=== PATIENT | male | born 1950 | race Caucasian/White ===

== ENCOUNTER → 2017-04-29 07:46 | Outpatient (CLI) | payer BC, SELFPAY ==
[2017-04-29 08:23] LABS: Absolute Lymphocyte Count 1.41 X10^3/ul (0.83-4.51); Absolute Neutrophil Count 2.7 X10^3/uL (2.0-7.7); Basophil# 0.02 X10^3/uL; Basophil% 0.4 % (0-1); Eosinophil# 0.15 X10^3/uL; Eosinophils% 3.1 % (0-5); Hematocrit 43.6 % (40-54); Hemoglobin 14.9 g/dl (13.0-16.5); Lymphocyte # 1.41 X10^3/ul (4.0); Mean Corp Hgb Conc 34.2 g/gl (32-36); Mean Corpuscular Hgb 30.9 pg (27.0-32.0); Mean Corpuscular Volume 90.5 fL (80-94); Mean Platelet Vol. 11.4 fl (6.2-12.0); Monocyte# 0.51 X10^3/uL; Monocyte% 10.5 % (0-10); Neutrophil # 2.74 X10^3/uL (2.7-7.7); Neutrophil % 56.4 % (47-70); Platelet Count 137 K/mm3 (150-450); RBC Distribution Width CV 12.7 % (11.6-14.6); RBC Distribution Width SD 41.4 fl (35.1-43.9); Red Blood Count 4.82 M/mm3 (4.6-6.2); White Blood Count 4.9 K/mm3 (4.4-11.0)
[2017-04-29 08:27] LABS: POSITIVE COUNT NO; POSITIVE DIFFERENTIAL NO; POSITIVE MORPHOLOGY NO
[2017-04-29 09:01] LABS: Anion Gap 10 (5-15); BUN 21 mg/dL (7-18); BUN/Creat Ratio 12.7 RATIO (10-20); Calcium,Total 9.4 mg/dL (8.5-10.1); Chloride 108 mmol/L (98-107); Cholesterol 119 mg/dL (200); Creatinine, Serum 1.66 mg/dL (0.70-1.30); EST Glomerular Filtration Rate 44 mL/min (>60); Est Glom Filt Rate - Afr Amer 54 mL/min (>60); Glucose 97 mg/dL (74-106); High Density Lipoprotein 31 mg/dL; Sodium Level 143 mmol/L (136-145); Triglycerides 177 mg/dL; Uric Acid 4.5 mg/dL (3.5-7.2); Very Low Density Lipoprotein 35 mg/dL (5-40)
== END ==
DX: I12.9 Hypertensive chronic kidney disease with stage 1 through stage 4 chronic kidney disease, or unspecified chronic kidney disease (principal); N18.3 Chronic kidney disease, stage 3 (moderate); E78.2 Mixed hyperlipidemia; M10.9 Gout, unspecified
CPT/HCPCS: 36415; 80048; 80061; 84550; 85025

== ENCOUNTER → 2017-10-27 20:27 | Outpatient (CLI) | payer BC, SELFPAY | DX: G47.33 Obstructive sleep apnea (adult) (pediatric) (principal) | CPT/HCPCS: 95811 ==

== ENCOUNTER → 2018-10-11 15:22 | Outpatient (CLI) | payer BC, SELFPAY ==
--- NOTE | 2018-10-11 15:24 | RAD_ITS ---
STUDY: X-RAY - LUMBAR SPINE REASON FOR EXAM: Male, 68 years old. Low back pain for years, increased x 3 months with bilateral leg pain. TECHNIQUE: 3 view(s) of the lumbar spine were obtained. COMPARISON: None FINDINGS: Normal lumbar lordosis. There is a grossly levoscoliosis of the upper lumbar spine. There is stable grade 1 L3-4 spondylolisthesis. There is stable multilevel endplate spondylosis of the visualized thoracolumbar vertebrae. There is multi-level degenerative disc disease with multi-level disc space narrowing. Bilateral L3 pars defects again noted. No other new demonstrated osseous destructive lesion or acute fracture. There are stable multilevel degenerative changes of the lumbar facet joints. There is stable atherosclerotic calcification of the abdominal aorta without a demonstrated aneurysm. RAD/Lumbar Spine 2 or 3 Views IMPRESSION: Stable multilevel degenerative changes of the spine, as detailed above. Bilateral L3 pars defects and a grade 1 L3-4 spondylolisthesis also unchanged. Electronically Signed: Edwar Lerma MD at 16:33 EDT , Service support ,
== END ==
PROVIDERS: Referring Provider Anesthesiology Pain Medicine; Visit Provider Anesthesiology Pain Medicine
DX: M54.9 Dorsalgia, unspecified (principal)
CPT/HCPCS: 72100

== ENCOUNTER → 2018-10-17 06:34 | Outpatient (CLI) | payer BC, SELFPAY ==
--- NOTE | 2018-10-17 06:44 | MRI_ITS ---
STUDY: MRI LUMBAR SPINE WITHOUT CONTRAST REASON FOR EXAM: Male, 68 years old. Low back and bilateral leg pain. TECHNIQUE: Standardized fat and water weighted pulse sequences were obtained in the sagittal and axial planes. COMPARISON: CT abdomen and pelvis 07/22/2016. MRI lumbar spine 12/18/2013. FINDINGS: Alignment similar to the 07/22/2016 CT with moderate left scoliosis centered at L1-2, 2 mm degenerative retrolisthesis of L1 on L2, 6 mm degenerative anterolisthesis of L3 on L4, and 2 mm degenerative retrolisthesis of L5 on S1. Bilateral L3 spondylolysis again demonstrated. No acute fracture or acute signal changes in the vertebrae. Disc height loss and degenerative endplate signal changes and irregularity at all levels, with the exception of L4-5, are similar to previous. The conus terminates at the level of the mid L1 vertebral body with normal contour and signal, and the thecal sac terminates at the mid S3 level. No acute findings in the visualized paraspinal soft tissues. Incidental right renal cyst. At L1-2, mild degenerative retrolisthesis, moderate diffuse disc bulge (which is larger compared to the previous MRI), and mild bilateral facet degeneration causes moderate narrowing of the right subarticular zone, with disc of abutting but not compressing the traversing right L2 nerve root; this narrowing is new compared to the previous MRI. Only mild narrowing of the foramina and left subarticular zone. At L2-3, mild bilateral facet degeneration causes no significant narrowing of the foramina or spinal canal. At L3-4, marked bilateral facet degeneration, with bilateral L3 spondylolysis and 6 mm anterolisthesis and unroofing of the disc, causes only mild narrowing of the spinal canal, and moderate narrowing of the bilateral foramina, with mild flattening of the bilateral exiting L3 nerve roots. This level is similar to prior. At L4-5, marked bilateral facet degeneration with degenerative buckling of the ligamentum flavum has significantly worsened compared to the previous MRI. This causes high-grade narrowing of the bilateral subarticular zones, likely compressing the traversing bilateral L5 nerve roots. There is moderate narrowing of the spinal canal with moderate central crowding of the remainder of the cauda equina, all new compared to the previous MRI. 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 At L5-S1, mild degenerative retrolisthesis combines with disc osteophyte complex and moderate bilateral facet degeneration to cause moderate narrowing of the left subarticular zone, with posterior displacement and possible compression of the traversing left S1 nerve root. Osteophytes cause moderate narrowing of the left foramen, with flattening of the exiting left L5 nerve root in the foramen. Only mild narrowing of the right foramen and right subarticular zone. This level is similar to the previous MRI. MRI/Spine Lumbar (Routine) IMPRESSION: Interval marked worsening of bilateral facet degeneration at L4-5. Resulting degenerative buckling of the ligamentum flavum causes high-grade narrowing of the bilateral subarticular zones, likely compressing the traversing bilateral L5 nerve roots, new compared to the previous MRI. 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 Slight interval worsening of disc bulge at L1-2, with resulting moderate narrowing of the right subarticular zone, with disc of abutting but not compressing the traversing right L2 nerve root; this is also new compared to the previous MRI. Otherwise similar to previous, including moderate left scoliosis, bilateral L3 spondylolysis with grade 1 anterolisthesis of L3 on L4, moderate narrowing of the bilateral L3-4 foramina, and moderate narrowing of the left subarticular zone and left foramen at L5-S1. Electronically Signed: Dominik Neves, at 8:22 EDT Tel , Service support ,
== END ==
PROVIDERS: Referring Provider Anesthesiology Pain Medicine; Visit Provider Anesthesiology Pain Medicine
DX: M54.9 Dorsalgia, unspecified (principal); M79.606 Pain in leg, unspecified
CPT/HCPCS: 72148

== ENCOUNTER 2019-02-19 09:30 | Outpatient (RCR) | payer BC, SELFPAY ==
--- NOTE | 2018-12-03 14:31 | HP.PTEVAL ---
Patient's Visit Information ROMARIO SANCHEZ is a 68 year old M referred to Physical Therapy by LEONID LILLY with a diagnosis of L3/L4/L5/S1 fusion. Date of Evaluation: 12/03/18 Physical Therapist: Jesus Nelson DPT - Visit Plan Frequency: 2-3x /Week Duration: 4-6 Weeks Plan: Start with core stability exercises in neutral spine, BLE stretching and light dural stretching. Progress as tolerated. Start PT 12/07/18. - Subjective Findings: Pt. is here today for is initial evaluation S/P L3/L4/L5/S1 fusion, bilateral pedicle screw instrumentation (posterior/lateral fusion). DOS: Nov 12, 2018. Pt. denies N/T in either LE. Pt. is no longer having any leg pain, but does have R sided lumbar spine pain. Pt arrives today walking with SPC and use of lumbar brace. Pt. reports being HEP Compliant with exercises from physician. Pt. reports he is already doing much better than prior to surgery. 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 Pt. reports being compliant with no bending/twisting/lifting precatuions. Pt. is hopeful to increase his core strength and get back to recreational walking and all kahn activities without limitations. - Pain lumbar spine Pain Intensity (Out of 10): 4 Pain Intensity Range: 2, 6 - Objective POSTURE: Pt. has slight anterior pelvic tilt. Pt. has rounded shoulders. Pt. is able to improve with VC/TCing. PALPATION: Pt. has well healing incision, lower portion of scar has scab attached, upper to well healed. No signs of infection, no rednes. NEURO: normal DTR of BLEs, normal senstation of BLEs. ROM: Did not test ROM of lumbar spine. Pt. has tight HS bilaterally and tight hip flexors bilaterally. MMT: PT. had 4+/5 BLE strength throughout, except hip flexion 4/5 mild increase NW and hip abd 4/5 NE. GAIT: Pt. has decent gait pattern with SPC. PT. reports no increase in symptoms. Pt. has normal wt. shift between LEs, but has slight antalgic during R stance phase. Stairs wit BHR with step to pattern. No increase in symptoms. - Goals Goal 1:: Pt. to be I with Goal Time Frame: 4-6 Weeks Goal 2:: Pt. to ambulate unlimited distances without increase in symptoms. Goal Time Frame: 4-6 Weeks Goal 3:: Pt. to have good body awareness and demonstrate improved posture. Goal Time Frame: 4-6 Weeks Goal 4:: Pt. to negotiate 1 flight of steps with 1 HR with reciprocal pattern without increase in symptoms. Goal Time Frame: 4-6 Weeks Goal 5:: Pt. to sleep throughout the night without increase in symptoms. Goal Time Frame: 4-6 Weeks - Rehabilitation Potential Physical Therapy Diagnosis: Pt has signs and symptoms consistent with L3/L4/L5/S1 fusion. Pt. has subsequent hypombility, weakness, difficulty with walking and pain. Pt. would benefit from PT to increase core stability, LE stretching and reduce symptoms. Pt. to avoid Bending/twisting/lifting until otherwise noted. Rehabilitation Potential: Excellent - Anticipated Interventions Patient/Client Instruction: Educate patient on: Condition, Plan of Care, Risk Factors, Benefits of Fitness Program For the Purpose of:: To improve decision making, To facilitate caregiver knowledge, To improve self management, To prevent re-injury, To improve ability to perform tasks related to life management, To improve tolerance to ADL's Therapeutic Exercise to Include: Strength training, Power training, Endurance training, Postural training, Flexibilty training, Gait and locomotor training, Active ROM, Dynamic Lumbar Stabilization For the Purpose of:: To decrease pain, To decrease swelling/inflammation, To increase ROM, To improve nutrient delivery to tissue, To increase oxygenation perfusion, To improve muscle performance and motor function, To improve ability to perform ADL's, To increase tolerance to activity/condition/position, To improve ability of physical actions for home/community/work/leisure, To improve gait and locomotor functions, To improve health of tissue, To decrease soft tissue restriction, To increase flexibility/ROM Thank you for the opportunity to evaluate your patient. For Medicare and Medicare HMO plans, please review the plan of care and approve it. It will need to be FAXED BACK to us at [phone] for Medicare purposes. For Medicare only, by signing this I certify the plan of care. Please let me know if there are questions or concerns regarding this plan of care. Physician Signature: Date:
--- NOTE | 2018-12-20 11:39 | HP.PTREVAL ---
LEONID LILLY, It has been my pleasure to treat ROMARIO SANCHEZ over the last 7 visits for L3/L4/L5/S1 fusion. Please see the progress note below for an update on the physical therapy plan of care! Subjective: Pt. reports having 1/10 pain pre treatment. Pt. reports overall doing much better. He does get occassional R sided lumbar pain, 1-2/10 pain at times. Pt. is HEP compliant without issues. Objective/Function: Pt. toelrated all PT without adverse reaction. Pt. continues to progress as expected. Pt. reports no increase in symptoms with PT. Pt. is progressing with core stability exercises adn body mechanics with all movements. He is to follow up with physician tomorrow. Plan Plan: Start with core stability exercises in neutral spine, BLE stretching and light dural stretching. Progress as tolerated. Start PT 12/07/18. Goals Goal 1:: Pt. to be I with Goal Time Frame: 4-6 Weeks Goal Progress: Progressing Goal 2:: Pt. to ambulate unlimited distances without increase in symptoms. Goal Time Frame: 4-6 Weeks Goal Progress: Progressing Goal 3:: Pt. to have good body awareness and demonstrate improved posture. Goal Time Frame: 4-6 Weeks Goal Progress: Goal Met Goal 4:: Pt. to negotiate 1 flight of steps with 1 HR with reciprocal pattern without increase in symptoms. Goal Time Frame: 4-6 Weeks Goal Progress: Progressing Goal 5:: Pt. to sleep throughout the night without increase in symptoms. Goal Time Frame: 4-6 Weeks Goal Progress: Progressing Anticipated Interventions Patient/Client Instruction: Educate patient on: Condition, Plan of Care, Risk Factors, Benefits of Fitness Program For the Purpose of:: To improve decision making, To facilitate caregiver knowledge, To improve self management, To prevent re-injury, To improve ability to perform tasks related to life management, To improve tolerance to ADL's Therapeutic Exercise to Include: Strength training, Power training, Endurance training, Postural training, Flexibilty training, Gait and locomotor training, Active ROM, Dynamic Lumbar Stabilization For the Purpose of:: To decrease pain, To decrease swelling/inflammation, To increase ROM, To improve nutrient delivery to tissue, To increase oxygenation perfusion, To improve muscle performance and motor function, To improve ability to perform ADL's, To increase tolerance to activity/condition/position, To improve ability of physical actions for home/community/work/leisure, To improve gait and locomotor functions, To improve health of tissue, To decrease soft tissue restriction, To increase flexibility/ROM Please do not hesitate to contact me at [phone] by phone or if you have questions or concerns regarding this new plan of care! Sincerely, LITZY CuelloT
--- NOTE | 2019-01-28 09:03 | HP.PTREVAL_ITS ---
LEONID LILLY, It has been my pleasure to treat ROMARIO SANCHEZ over the last 18 visits for L3/L4/L5/S1 fusion. Please see the progress note below for an update on the physical therapy plan of care! Subjective: Pt. reports I was pretty sore yesterday, I don't really know what I did. He reports pain mostly on R side, SI region. Pt. reports having occ assional click in his R side of back, but is unsure if this is his hip. Pt. reports having generallized soreness this date on R side. No raidating symptoms in R leg. Objective/Function: Pt. tolerated all PT without adverse reaction. Pt. to continue to focus on controlled movements. Pt. is eager to get to higher lifting, back to previous levels. I have urged him to focus on control rather than speed or load. Pt. has min loss with flexion with slight increase in symptoms, has decent rotation without increase insymptoms. Pt. has to require increased VC/TCing for pelvic tilts with activites. Pt. tends to lose his proper pelvic postion with actiites. 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 Plan Plan: Cont. wtih POC. PT. to follow up with physician in a few weeks. FOcus on core stability and stretching as tolerated. Goals Goal 1:: Pt. to be I with Goal Time Frame: 4-6 Weeks Goal Progress: Goal Met Goal 2:: Pt. to ambulate unlimited distances without increase in symptoms. Goal Time Frame: 4-6 Weeks Goal Progress: Progressing Goal 3:: Pt. to have good body awareness and demonstrate improved posture. Goal Time Frame: 4-6 Weeks Goal Progress: Progressing Goal 4:: Pt. to negotiate 1 flight of steps with 1 HR with reciprocal pattern without increase in symptoms. Goal Time Frame: 4-6 Weeks Goal Progress: Goal Met Goal 5:: Pt. to sleep throughout the night without increase in symptoms. Goal Time Frame: 4-6 Weeks Goal Progress: Goal Met Anticipated Interventions Patient/Client Instruction: Educate patient on: Condition, Plan of Care, Risk Factors, Benefits of Fitness Program For the Purpose of:: To improve decision making, To facilitate caregiver knowledge, To improve self management, To prevent re-injury, To improve ability to perform tasks related to life management, To improve tolerance to ADL's Therapeutic Exercise to Include: Strength training, Power training, Endurance training, Postural training, Flexibilty training, Gait and locomotor training, Active ROM, Dynamic Lumbar Stabilization For the Purpose of:: To decrease pain, To decrease swelling/inflammation, To increase ROM, To improve nutrient delivery to tissue, To increase oxygenation perfusion, To improve muscle performance and motor function, To improve ability to perform ADL's, To increase tolerance to activity/condition/position, To improve ability of physical actions for home/community/work/leisure, To improve gait and locomotor functions, To improve health of tissue, To decrease soft tissue restriction, To increase flexibility/ROM Please do not hesitate to contact me at [phone] by phone or if you have questions or concerns regarding this new plan of care! Sincerely, LITZY CuelloT
--- NOTE | 2019-02-21 09:46 | HP.PTDCSUM ---
HP - PT D/C Summary It has been my pleasure to treat ROMARIO SANCHEZ under orders from LEONID LILLY, for the diagnosis of L3/L4/L5/S1 fusion for a total of 27 visit(s). Discharge Date: 02/19/19 Please see the following information for a summary of their discharge status. - Subjective Subjective: Pt. reports I am like 90% better overall.' pt. reports 0.5/10 pain in R side of lumbar spine its just a little sore. no N/T. He is planning to return to work next week. He has been HEP compliant without limitations. - Pain lumbar spine Pain Intensity (Out of 10): 1 - Overall Improvement % Improvement: 90 - Objective Objective/Function: Pt. has good ROM throughout lumbar spine, min loss with flexion 9due to HS tightnes), extension min/mod loss as expected, rotation min loss bilat. HS tightness noted, but improved. HE is improving with B hip ER motion, allowing for increased ability to don/doff shoes. Pt. has minimal pain that does not increase much with activity, .5/10 pain throughout PT this date. He is back to all ADls and daily activitie without limiations. Pt. has fair- core strength, and 5/5 strength throughout bilateral Les. pt. is walking unlimited disancse and stair negotiation without issues. - Goals Goal 1:: Pt. to be I with Goal Progress: Goal Met Goal 2:: Pt. to ambulate unlimited distances without increase in symptoms. Goal Progress: Goal Met Goal 3:: Pt. to have good body awareness and demonstrate improved posture. Goal Progress: Goal Met Goal 4:: Pt. to negotiate 1 flight of steps with 1 HR with reciprocal pattern without increase in symptoms. Goal Progress: Goal Met Goal 5:: Pt. to sleep throughout the night without increase in symptoms. Goal Progress: Goal Met - Plan Plan: Pt. to be DC from PT at this point in time. - D/C Information Discharge Comments: Pt. was treated for his lumbar spine fusion. He progressed with core stability and ROM as expected. Pt. did well. He is walking and completing all daily activities with minimal issues. He is to return back to work next week. Pt. will be DC from PT at this point in time. If there are questions or concerns regarding this patient's physical therapy, please feel free to call me at [phone]. Thank you for the referral of this patient. Sincerely, LITZY CuelloT
== END 2019-02-19 19:00 | disposition home or self-care (01) ==
LOC: PT 09:30
DX: M51.36 Other intervertebral disc degeneration, lumbar region (principal); G80.0 Spastic quadriplegic cerebral palsy; P91.60 Hypoxic ischemic encephalopathy [HIE], unspecified; Z74.09 Other reduced mobility
CPT/HCPCS: 97110; 97161

== ENCOUNTER 2022-01-28 09:00 | Outpatient (RCR) | payer MEDICARE, SELFPAY ==
--- NOTE | 2022-01-05 08:57 | HP.PTEVAL ---
Patient's Visit Information ROMARIO SANCHEZ is a 71 year old M referred to Physical Therapy by TUAN GRAF with a diagnosis of L shoulder pain, clavicle fracture. Date of Evaluation: 12/29/21 Physical Therapist: Jesus Nelson DPT - Visit Plan Frequency: 2x /Week Duration: 4 Weeks Plan: Start with calming symptoms and restoring PROM, progress to AROM and initiating isometrics. Once this has been restored start to add in progressive deltoid, scapular and periscaplular strengthening. If not improving a MRI may be warranted to rule out more sinister pathology. - Subjective Pt. is here today for his initial evaluation with diagnosis of L shoulder pain, L clavicle fx (distal 02/22). Pt. reports ~1 month ago falling while closing his pool for the winter. Pt. slipped and fell into the side of pool directly onto his L shoulder. Pt. reports having an initial xrays showing a fracture, but subsequent xrays was much better. He is still having pain in his lateral shoulder and down his arm with lifting, reaching and ADLs. He reports lack of using his L arm is the only way that it feels better. He is also have increase pain with sleeping. His pain wakes him up at night. He has difficulty with all ADLs and driving. He denies N/T in either UE. Pt. has not tried any exercises, but did use a sling for a bit but is now out of it. He is hopeful to reduce symptoms to get back to all recreational activities without limitations. - Pain L shoulder Pain Intensity (Out of 10): 5 Pain Intensity Range: 3, 9 - Objective POSTURE: pt. has equal shoulder heights. Pt. tends to keep L UE in guarded posture. Pt. and rounded + forward shoulder on L side. PALPATION: Pt. has tenderness at anterior aspect of L shoulder, subacromial space. Pt. has no pain at clavicle with firm pressure. NEURO: Pt. has normal sensation to light and sharp touch. Pt. has normal 2+ DTR of bilateral biceps and triceps. ROM: R shoulder: full motion without increase in symptoms, funtional ER C5, functional IR L1. L shoulder: AROM: flexion 140deg increase NW, abd 120deg increase NW, functional ER C1 aberrant motion increase in symptoms, functional IR PSIS on L side increase NW. PROM: flexion 160deg, abd 155deg, ER at 90deg 40deg increase NW, IR at 90deg 30deg increase NW. Pt. very guarded with motion of L shoulder. Better passive motion, but still painful. MMT: RUE: 5/5 throughout. LUE: wrist and elbow: 5/5 throughout; shoulder: flexion 4/5 increase NW, abd 4-/5 increase NW, ext 5/5 NE, Er 4+/5 increase NW, IR 4-/5 increase worse (most painful). - Special Tests L Shoulder External Rotation Lag Test - RC Tear: Negative L Shoulder Lift Off Test - Subscapular Tear: Positive L Shoulder Drop Sign - IS Test: Negative L Shoulder Empty Can - SS: Negative L Shoulder Belly Press - SupScap: Positive L Shoulder Neer - Impingement: Positive L Shoulder Merchant Naeem - Impingement: Positive L Shoulder Speeds Test - Labrum/Biceps: Positive - Balance/Special Test Scores Quick DASH Score: 63.6350 - Goals Goal 1:: LTG: Pt. to be I with HEP. Goal Time Frame: 4-6 Weeks Goal 2:: STG: Pt. to sleep throughout the night without increase in symptoms. Goal Time Frame: 2 Weeks Goal 3:: STG: Pt. to have full PROM of L shoulder without increase in symptoms. Goal Time Frame: 2-4 Weeks Goal 4:: LTG: Pt. to have full AROM of L shoulder without increase in symptoms. Goal Time Frame: 4-6 Weeks Goal 5:: LTG: Pt. to be able to complete all ADLs and household activities without increase in symptoms. Goal 6:: LTG: Pt. to have 5/5 strength through L shoulder without increase in symptoms. Goal Time Frame: 4-6 Weeks - Rehabilitation Potential Physical Therapy Diagnosis: Pt. has signs and symptoms consistent with L shoulder pain. After testing I am leaning towards RTC pathology. Due to nature of injure and limited mobility along with pain with muscle activation I would not be surprised by a RTC tear of some sort. He is limited in his overall mobility secondary to pain. He would still benefit from PT to work on restoring his ROM as he is fairly limited here as well. He would benefit from PT to initially restore his ROM along with reducing symptoms, progressing to light strengthening of his deltoid, scapular musculature, and RTC. Rehabilitation Potential: Good - Anticipated Interventions Patient/Client Instruction: Educate patient on: Condition, Plan of Care, Risk Factors, Benefits of Fitness Program For the Purpose of:: To improve decision making, To facilitate caregiver knowledge, To improve self management, To prevent re-injury, To improve ability to perform tasks related to life management Therapeutic Exercise to Include: Strength training, Power training, Coordination, Postural training, Flexibilty training, Passive ROM, Active ROM, Scapular Strength/Stabilization For the Purpose of:: To decrease pain, To decrease swelling/inflammation, To increase ROM, To improve nutrient delivery to tissue, To increase oxygenation perfusion, To improve health of tissue, To decrease soft tissue restriction, To increase flexibility/ROM Manual Therapy Techniques to Include: Mobilization, Passive ROM For the Purpose of:: To decrease pain, To decrease swelling/inflammation, To increase ROM, To improve nutrient delivery to tissue, To increase oxygenation perfusion, To improve muscle performance and motor function IF ES: Yes Cryotherapy (ice pack, ice massage): Yes Thermo therapy (hot pack): Yes Ultrasound (thermal/non thermal): Yes For the Purpose of:: To decrease pain, To decrease swelling/inflammation, To increase ROM, To improve nutrient delivery to tissue Thank you for the opportunity to evaluate your patient. For Medicare and Medicare HMO plans, please review the plan of care and approve it. It will need to be FAXED BACK to us at [phone] for Medicare purposes. For Medicare only, by signing this I certify the plan of care. Please let me know if there are questions or concerns regarding this plan of care. Physician Signature: Date:
== END 2022-01-28 19:00 | disposition home or self-care (01) ==
LOC: PT 09:00
DX: S42.032G Displaced fracture of lateral end of left clavicle, subsequent encounter for fracture with delayed healing (principal)
CPT/HCPCS: 97035; 97110; 97161